=== PATIENT | female | born 2000 | race Caucasian/White ===

== ENCOUNTER 2023-02-15 15:50 | Emergency (ER) | payer SELFPAY ==
[2023-02-15 18:05] LABS: APPEARANCE,URINE CLEAR; BILIRUBIN,URINE NEGATIVE (NEGATIVE); COLOR,URINE YELLOW; GLUCOSE,URINE NEGATIVE (NEGATIVE); KETONES,URINE TRACE mg/dL (NEGATIVE); LEUKOCYTE ESTERASE,URINE SMALL (NEGATIVE); NITRITE,URINE NEGATIVE (NEGATIVE); OCCULT BLOOD,URINE SMALL (NEGATIVE); PROTEIN,URINE NEGATIVE (NEGATIVE); UROBILINOGEN,URINE 0.2 EU/dL (<2.0)
[2023-02-15 18:37] LABS: EPITHELIAL CELLS,URINE MANY (NONE-FEW); RBC,URINE 0-1 (0-2/HPF)
[2023-02-15 18:38] LABS: BACTERIA,URINE 2+ (NEGATIVE); CALCIUM OXALATE CRYSTALS,URINE RARE (NEGATIVE)
== END 2023-02-15 19:55 | disposition home or self-care (01) ==
LOC: MW.ED 15:50
DX: N30.00 Acute cystitis without hematuria (principal); Z88.0 Allergy status to penicillin
CPT/HCPCS: 76830; 76830-26; 81001; 81025; 87086; 99283; 99284